=== PATIENT | female | born 1995 | race Caucasian/White ===

== ENCOUNTER 2019-08-12 00:34 | Emergency (ER) | payer OTHER ==
[~2019-08-12] VITALS: Ht 160 cm; Wt 74.8 kg
--- NOTE | 2019-08-12 00:34 | NUR ---
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
--- NOTE | 2019-08-12 00:34 | NUR ---
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
[2019-08-12] MEDS ORDERED: MORPHINE SULFATE 4 MG/1 ML DISP.SYRIN ONE (00:54)
[2019-08-12] MEDS ORDERED: MORPHINE SULFATE 4 MG/1 ML DISP.SYRIN IM ONE (01:00)
--- NOTE | 2019-08-12 01:00 | NUR ---
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
[2019-08-12] MEDS ORDERED: FENTANYL CITRATE 100 MCG/2 ML AMPUL IV ONE (01:45)
--- NOTE | 2019-08-12 02:00 | NUR ---
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
--- NOTE | 2019-08-12 02:20 | NUR ---
MD AT BEDSIDE FOR UPDATE PT ABLE TO TOLERATE PHYSICAL EXAM AND MANIPULATION OF L WRIST REDUCTION DONE PT ABLE TO DO ROM WITH GREAT RELIEF +PULSES +BOTH HANDS SLILGHTLY COLD +CAP REFILL LESS THAN 2S CMS CHECK DONE
--- NOTE | 2019-08-12 02:45 | NUR ---
PT ABLE TO TOLERATE COLLE SPLINT (MED/LT) SECURED WITH 1X 3IN JULISSA WRAP AND 1X4IN ACEWRAP CMS CHECK DONE
--- NOTE | 2019-08-12 02:59 | NUR ---
Patient discharged to home in stable conditon. Written and verbal after care instructions given. Patient verbalizes understanding of instructions. ambulatory w/ stable gait all belongings w/ pt
--- NOTE | 2019-08-12 03:04 | NUR ---
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
[2019-08-12 03:10] VITALS: BP 121/56
== END 2019-08-12 03:11 | disposition home or self-care (01) ==
LOC: ER 00:43
DX: S69.92XA Unspecified injury of left wrist, hand and finger(s), initial encounter (principal); W51.XXXA Accidental striking against or bumped into by another person, initial encounter; Y93.89 Activity, other specified; Y92.89 Other specified places as the place of occurrence of the external cause; Y99.0 Civilian activity done for income or pay
CPT/HCPCS: 29125; 73110; 96372; 99283; J2270; A4663